=== PATIENT | male | born 2000 | race African-American/Black ===

== ENCOUNTER 2019-06-15 20:29 | Emergency (ER) | payer OTHER ==
[2019-06-15] MEDS ORDERED: Adacel (T-DAP) 0.5 ML SYRINGE ONE (21:00)
[2019-06-15] MEDS ORDERED: Acetaminophen 500 MG TAB ONE (21:00)
--- NOTE | 2019-06-15 21:22 | CT ---
CT of the facial bones: 06/15/2019 COMPARISON: None HISTORY: Injury, trauma, pain TECHNIQUE: Axial CT imaging at 2.5 mm intervals through the facial bones with coronal and sagittal re formatted imaging FINDINGS: Comminuted impacted bilateral nasal bone fractures are noted with mild leftward angulation. The frontal sinuses, maxillary sinuses, ethmoid air cells, and sphenoid sinuses appear well aerated as do bilateral mastoid air cells. The zygomatic arches and the pterygoid plates appear intac t. No evidence for a mandibular fracture. No temporomandibular joint dislocation. The orbital floor and medial orbital wall appears intact bilaterally. There is soft tissue swelling i n the left infraorbital region. IMPRESSION: Comminuted bilateral nasal bone fractures. Left-sided soft tissue swelling.
--- NOTE | 2019-06-15 21:32 | CT ---
Head CT without contrast 06/15/2019: Comparison: None HISTORY: Injury, trauma, pain TECHNIQUE: Axial CT imaging at 5 mm intervals from vertex through skull base without contrast FINDINGS: The imaged paranasal sinuses and mastoid air cells are well-aerated. No displaced calvarial fracture. No intracranial hemorrhage, midline shift, mass effect, or ventricular enlargement. IMPRESSION: No intracranial hemorrhage or displaced calvarial fracture.
== END 2019-06-15 23:07 ==
LOC: EEVIPCON 20:29 → ERS 20:29
DX: S02.2XXA Fracture of nasal bones, initial encounter for closed fracture (principal); S01.81XA Laceration without foreign body of other part of head, initial encounter; Z23 Encounter for immunization; Y04.0XXA Assault by unarmed brawl or fight, initial encounter
CPT/HCPCS: 70450; 70486; 90471; 90715

== ENCOUNTER 2023-11-30 23:20 | Emergency (ER) | payer OTHER ==
[2023-12-01] MEDS ORDERED: Acetaminophen 325 MG TAB ONE (00:36)
== END 2023-12-01 03:17 ==
LOC: ERS 23:20 → EEVIPCON 23:20 → ERS 12-01 03:17
DX: S02.2XXA Fracture of nasal bones, initial encounter for closed fracture (principal); S00.531A Contusion of lip, initial encounter; Y04.2XXA Assault by strike against or bumped into by another person, initial encounter
CPT/HCPCS: 70450; 70486; 99283

== ENCOUNTER 2025-05-02 04:59 | Emergency (ER) | payer SELFPAY ==
[2025-05-02 05:27] LABS: CAUTI Indications for Culture Pelvic or flank pain; Glucose, Urine (Dipstick) Normal (Negative); Leukocyte 75 Leu/uL (Negative); Protein, Urine (Dipstick) 10 mg/dL (Neg-Trace); Specific Gravity, Urine 1.029 (1.002-1.036); WBC/HPF 21-50 HPF (0-3)
[2025-05-02 05:35] LABS: Bacteria/HPF 1+ HPF (None Seen)
[2025-05-02 05:36] LABS: Urine Culture Reflex Yes Yes
== END 2025-05-02 06:05 | disposition left against medical advice (07) ==
LOC: ERS 04:59
DX: Z53.21 Procedure and treatment not carried out due to patient leaving prior to being seen by health care provider (principal)
CPT/HCPCS: 81001; 87086